=== PATIENT | male | born 1960 | race Caucasian/White ===

== ENCOUNTER → 2016-12-13 | Outpatient (CLI) | payer BC ==
[~2016-12-13] MED LIST: AMLO10TA2 PO; AMLO5TAB2 PO; APIX5TAB2 PO; ASPI-999 PO; BENA1TAB3 PO; BENAZEPRIL-HCTZ; BNZ20T; CIPR500T78 PO; DEXL60CA3; DLT240CCR PO; ESCT10T; FENO160T PO; FISH1CAP15 PO; FLEC100T2 PO; FLEC50TA2 PO; KCL10CCR; LISI20TA PO; LISI40TA PO; METO-351 PO; MTP25TSR PO; NEBI5TAB8; NF-POTCH10; OMEP40CA36 PO; PANT40TA; PHEN200T27 PO; POTA10CA43 PO; POTA10TA36 PO; SMV20T; SPIR25TA PO; SULF1TAB38 PO; TELM80TA3 PO; WARF5TAB PO
--- NOTE | 2016-12-14 06:35 | ECHOCARDIOGRAPHY REPORT ---
DATE OF SERVICE: 12/13/2016 PROCEDURE: 2D ECHOCARDIOGRAM REFERRING PHYSICIAN: Dr. Rhett Aguilera. INDICATIONS: Atrial fibrillation. MEASUREMENTS: LVID and diastolic: 4.6 IVS thickness: 1.1 LV PW thickness: 1.1 Left atrial diameter: 4.0. Ejection fraction: 60%. FINDINGS: The technical quality is good. The left ventricle is normal in size with normal contractility, systolic function appears to be normal. The estimated ejection fraction is 60%. The left atrium is normal in size. No clot or thrombus was seen within the left atrium. The right atrium and right ventricle are normal in size. No clot or thrombus was seen within the right side. The mitral valve is normal in morphology with mild mitral regurgitation noted by color Doppler flow. No mitral valve prolapses. No mitral valve stenosis. The aortic valve is trileaflet with normal opening and closing pattern. No significant aortic stenosis or regurgitation was seen. The tricuspid valve is normal in morphology with mild tricuspid regurgitation noted by color Doppler flow. Doppler echo tricuspid valve estimated pulmonary artery pressure of 18 plus right atrial pressure. The pulmonic valve is functioning normally. No pericardial effusion. CONCLUSIONS: 1. Normal left ventricular size and systolic function. Estimated ejection fraction is 60%. 2. Mild mitral and tricuspid regurgitation. 3. Estimated pulmonary artery pressure of 25 mmHg. Job ID: [id number] DocumentID: [id number] Dictated Date: 12/13/2016 17:13:05 [employer]ace [employer] Date: 12/13/2016 23:43:07 Dictated By: KSENIA ROBLES MD
== END ==
LOC: CARD 12:47
PROVIDERS: ATTEND Internal Medicine Cardiovascular Disease
DX: I48.0 Paroxysmal atrial fibrillation (principal); I65.23 Occlusion and stenosis of bilateral carotid arteries; I10 Essential (primary) hypertension; E78.2 Mixed hyperlipidemia; I35.1 Nonrheumatic aortic (valve) insufficiency
CPT/HCPCS: 93306

== ENCOUNTER → 2018-01-28 | Outpatient (CLI) | payer BC ==
--- NOTE | 2018-01-28 17:03 | Diagnostic Imaging Report ---
INDICATION: Chronic sinus drainage. TECHNIQUE: Three views of the sinuses were obtained. FINDINGS: The frontal sinuses appear clear. The ethmoid air cells are clear. The maxillary sinuses appear clear. The sphenoid sinuses are grossly clear on the lateral view. There is no overt bony abnormality. IMPRESSION: Negative sinus series. Dictated by: Dictated on workstation # [id number]
== END ==
LOC: RAD 16:19
PROVIDERS: ATTEND Family Medicine
DX: J34.89 Other specified disorders of nose and nasal sinuses (principal)
CPT/HCPCS: 70220

== ENCOUNTER → 2019-07-09 | Outpatient (CLI) | payer BC ==
[~2019-07-09] MED LIST changes: -AMLO10TA2 PO; +AMLO10TA7 PO
--- NOTE | 2019-07-09 13:49 | Diagnostic Imaging Report ---
INDICATION: Cough and fatigue as well as chest pain. TIME OF EXAM: 11:37 a.m. COMPARISON: Comparison is made with prior chest from 12/11/2013. FINDINGS: The heart size is normal. The pulmonary vascularity is unremarkable. The lungs are clear. No infiltrate, effusion or pneumothorax is detected. IMPRESSION: No acute cardiopulmonary process is detected. Dictated by: Dictated on workstation # [id number]
== END ==
LOC: RAD 11:19
PROVIDERS: ATTEND Family Medicine
DX: R07.9 Chest pain, unspecified (principal); R05 Cough; R53.83 Other fatigue
CPT/HCPCS: 71046

== ENCOUNTER → 2020-09-30 | Outpatient (CLI) | payer BC ==
[~2020-09-30] MED LIST changes: +AMLO-251 PO; -AMLO10TA7 PO
== END ==
LOC: CARD 10:20
PROVIDERS: ATTEND Physician Assistant
DX: I11.9 Hypertensive heart disease without heart failure (principal); I08.0 Rheumatic disorders of both mitral and aortic valves
CPT/HCPCS: 93306